=== PATIENT | female | born 1995 | race Caucasian/White ===

== ENCOUNTER 2016-05-27 21:51 | Emergency (ER) | payer BC, OTHER ==
[2016-05-27] MEDS ORDERED: OCELLA PO (22:12)
[2016-05-27 22:22] LABS: URINE APPEARANCE CLOUDY; URINE BILIRUBIN NEGATIVE (NEG); URINE BLOOD LARGE (NEG); URINE COLOR YELLOW; URINE GLUCOSE (UA) NEGATIVE (NEG); URINE KETONE NEGATIVE (NEG); URINE LEUKOCYTE ESTERASE POSITIVE (NEG); URINE NITRITE POSITIVE (NEG); URINE PROTEIN MODERATE (NEG)
[2016-05-27 22:37] LABS: URINE EPITHELIAL CELLS 0 /[HPF] (0-10); URINE RBC 90-120 /[HPF] (0-5); URINE WBC 40-50 /[HPF] (0-5)
[2016-05-27 22:38] LABS: URINE BACTERIA 2+
[2016-05-27] MEDS ORDERED: PYRIDIUM200 M2 PO (23:08)
[2016-05-27] MEDS ORDERED: MACROBID 100 M100 M1 PO (23:08)
== END 2016-05-27 23:20 ==
LOC: EDMED 21:51
PROVIDERS: Emergency Medicine
DX: N39.0 Urinary tract infection, site not specified (principal); R31.9 Hematuria, unspecified; Z88.2 Allergy status to sulfonamides